=== PATIENT | male | born 1940 | race Caucasian/White ===

== ENCOUNTER → 2017-09-19 13:42 | Outpatient (CLI) | payer MEDICARE, OTHER, SELFPAY ==
--- NOTE | 2017-09-19 13:47 | US_ITS ---
US Arterial Ankle Brachial Ind History: Claudication, rest pain with numbness in the lower extremities, peripheral vascular disease ORDERING PHYSICIAN: Alex Peralta PATIENT AGE: 77 years TECHNIQUE: Segmental pressures obtained of both right and left leg. These are compared to brachial blood pressure to yield index at each level sampled including summary MUMTAZ. The data sheets from the procedure are available in PACS FINDINGS Rest study only performed today No prior studies available for comparison. Blood pressures reported are in millimeters mercury. RIGHT LEG MUMTAZ = 1.2. RIGHT LEG TBI=.6 Brachial BP: 173 Thigh BP: 168 Calf BP: 209 Ankle PT: 217 Ankle DP : 221 Digit =105 LEFT LEG MUMTAZ = 1.0 LEFT LEG TBI= .7 Brachial BPD: 178 Thigh BP: 179 Calf BP: 210 Ankle PT:181 Ankle DP: 180 Digit = 126 Pulses and waveforms: Normal IMPRESSION: The ABIs as reported above are within normal limits. Waveforms and pulses are also unremarkable. The TBI is slightly low bilaterally suggesting small vessel disease
== END ==
PROVIDERS: PCP Family Medicine; Visit Provider Thoracic Surgery (Cardiothoracic Vascular Surgery)
DX: I73.9 Peripheral vascular disease, unspecified (principal)
CPT/HCPCS: 93922